=== PATIENT | female | born 1980 | race Hispanic/Latino ===

== ENCOUNTER 2019-02-08 10:50 | Emergency (ER) | payer BC ==
[~2019-02-08 10:50] MED LIST: Iopamidol 370 76% 100 ML VIAL ONE
[2019-02-08] MEDS ORDERED: Lorazepam 2 MG/ML VIAL ONE (11:19)
--- NOTE | 2019-02-08 11:34 | RAD ---
2 views of the neck: 02/08/2019 COMPARISON: None HISTORY: Swallowed pill 1 hour ago, sensation that the pill is stuck FINDINGS: Imaged osseous structures demonstrate no acute findings. Epiglottis appears normal. No prev ertebral soft tissue swelling. Linear area of increased density overlying the soft tissues anterior to the C5 vertebral body, of uncertain significance. This may be artifactual in nature as it appears to overlie the upper cervical spinal frontal imaging. No subcutaneous gas. IMPRESSION: Probable artifact overlies the soft tissues anterior to the C5 vertebral body. However, robert yu provided history, CT examination of the neck advised.
[2019-02-08 12:32] LABS: #Basophils 0.1 thou/uL (0.0-0.2); #Eosinphils 0.6 thou/uL (0.0-0.7); #Monocytes 0.6 thou/uL (0.11-0.59); #Neutrophils 8.5 thou/uL (1.40-6.50); %Basophils 0.7 % (0.0-1.0); %Eosinophils 5.2 % (0.0-10.0); %Lymphocytes 16.6 % (21.0-51.0); %Monocytes 4.7 % (0.0-10.0); %Neutrophils 72.8 % (42.0-75.0); Hemoglobin 12.4 g/dL (12.0-16.0); Mean Corpuscular HGB CONC 31.4 g/dL (32.0-36.0); Mean Corpuscular Hemoglobin 28.7 pg (27.0-31.0); Mean Corpuscular Volume 91.4 fL (78.0-98.0); Mean Platelet Volume 7.8 fL (7.4-10.4); Platelet Count 224 thou/uL (130-400); RBC Distribution Width 12.4 % (11.5-14.5); Red Blood Cell (RBC) Count 4.33 mill/uL (4.20-5.40); White Blood Cell (WBC) Count 11.7 thou/uL (4.8-10.8)
--- NOTE | 2019-02-08 12:36 | CT ---
CT NECK SOFT TISSUES, WITH CONTRAST: CLINICAL INDICATION:Foreign body COMPARISON: No prior comparison imaging FINDINGS: Aerodigestive tract:Hyperdensity is seen within the imaged proximal to mid thoracic esophagus. There is also fluid density within the esophageal lumen. Parotid gland: No intrinsic mass, or inflammation. Submandibular glands:No intrinsic mass, or inflammation. Soft tissue mass:None Lymph nodes: There are scattered borderline-sized cervical chain lymph nodes, nonspecific Thyroid gland:No discrete thyroid lesion Incidental findings:There is mixed density layering opacity of the left maxillary sinus in addition t o scattered mucosal thickening and retention cyst formation of the paranasal sinuses. There is retropharyngeal course of each carotid artery. IMPRESSION: Hyperdensity is seen within the thoracic esophagus correlating to the described, recent ingested tabl et. Paranasal sinus inflammatory disease. Correlate clinically.
[2019-02-08 12:38] LABS: INR-International Normal Ratio 0.9; Prothrombin Time 12.4 SEC (12.0-14.7)
[2019-02-08 12:49] LABS: ALT (SGPT) 26 U/L (8-55); AST (SGOT) 16 U/L (5-34); Albumin 3.9 g/dL (3.5-5.0); Alkaline Phosphatase 52 U/L (40-110); Anion Gap 11 mmol/L (10-20); BUN (Urea Nitrogen) 14 mg/dL (7.0-18.7); Bilirubin, Total 0.2 mg/dL (0.2-1.2); Calc. Creatinine Clearance 0 mL/min (70-130); Calcium 8.9 mg/dL (7.8-10.44); Carbon Dioxide 24 mmol/L (22-29); Chloride 107 mmol/L (98-107); Estimated GFR-MDRD 77; Glucose 141 mg/dL (70-105); Protein, Total 6.9 g/dL (6.0-8.3); Sodium 138 mmol/L (136-145)
== END 2019-02-08 13:30 | disposition short-term general hospital (02) ==
LOC: MADERS 10:50
DX: T18.198A Other foreign object in esophagus causing other injury, initial encounter (principal)
CPT/HCPCS: 36415; 70360; 70491; 80053; 85025; 85610; 96372; J1610; J2060; Q9967